=== PATIENT | male | born 1965 | race Hispanic/Latino ===

== ENCOUNTER 2017-06-02 16:36 | Emergency (ER) | payer MEDICARE ==
[2017-06-02] MEDS ORDERED: MOTRIN PO ONE (20:17)
[2017-06-02] MEDS ORDERED: BACTRIM DS PO ONE (20:17)
--- NOTE | 2017-06-02 20:35 | Emergency Department Report ---
ED Extremity Problem HPI - General Chief complaint: Extremity Problem,Nontraumatic Stated complaint: RT LEG SWELLING Time Seen by Provider: 06/02/17 20:11 Source: patient Mode of arrival: Ambulatory Limitations: Other - History of Present Illness Initial comments: 52-year-old male past medical history bipolar, schizophrenia, mild mental retardation from alf presents with complaint of several days of swelling and redness to his right lower extremity. On exam patient is somewhat verbally disorganized ranting about the Bible and his support for the [employer]. Patient is awake and alert 3, is cooperative and lucid enough to understand my questioning and describe his symptoms. As per the patient's alf counselor Miss Belia Rod was present at bedside this is his baseline level of behavior. Patient's mother also present during exam and stated that this is usually how he expresses himself. Visible redness and mild swelling to right distal anterior ankle/tibial region. Patient states it is not painful feel slightly itchy. As per mother and group counselor patient has had cellulitis of his skin in the past. Denies any direct trauma to leg. MD Complaint: extremity pain, extremity swelling Onset/Timin -: days(s) Location: right, lower extremity History of Same: Yes Radiation: none Quality: burning, aching, other (itching) Consistency: constant Improves with: nothing - Related Data Previous Rx's Medication Instructions Recorded Last Taken Type Ciprofloxacin HCl [Ciprofloxacin 500 mg PO Q12H #14 tab 10/04/15 Unknown Rx TAB] Sulfamethoxazole/Trimethoprim 1 each PO BID #14 tablet 10/04/15 Unknown Rx [Bactrim DS TAB] Cephalexin [Keflex] 500 mg PO BID #14 capsule 06/02/17 Unknown Rx Ibuprofen [Motrin] 600 mg PO Q8H PRN #20 tablet 06/02/17 Unknown Rx Sulfamethoxazole/Trimethoprim 1 each PO BID #14 tablet 06/02/17 Unknown Rx [Bactrim DS TAB] Allergies Allergy/AdvReac Type Severity Reaction Status Date / Time No Known Allergies Allergy Unverified 06/02/17 17:26 ED Review of Systems ROS: Stated complaint: RT LEG SWELLING Other details as noted in HPI Constitutional: denies: chills, fever Eyes: denies: eye pain, eye discharge, vision change ENT: denies: ear pain, throat pain Respiratory: denies: cough, shortness of breath, wheezing Cardiovascular: denies: chest pain, palpitations Endocrine: no symptoms reported Gastrointestinal: denies: abdominal pain, nausea, diarrhea Genitourinary: denies: urgency, dysuria Musculoskeletal: as per HPI. denies: back pain, joint swelling, arthralgia Skin: change in color (erythema right lower anterior wilcox region). denies: rash , lesions Neurological: denies: headache, weakness, paresthesias Psychiatric: denies: anxiety, depression Hematological/Lymphatic: denies: easy bleeding, easy bruising ED Past Medical Hx - Past Medical History Previous Medical History?: Yes Hx Psychiatric Treatment: Yes (Bipolar Schizophrenia) Additional medical history: MR - Social History Smoking Status: Never Smoker Substance Use Type: None - Medications Home Medications: Home Medications Medication Instructions Recorded Confirmed Last Taken Type Ciprofloxacin HCl [Ciprofloxacin 500 mg PO Q12H #14 tab 10/04/15 Unknown Rx TAB] Sulfamethoxazole/Trimethoprim 1 each PO BID #14 tablet 10/04/15 Unknown Rx [Bactrim DS TAB] Cephalexin [Keflex] 500 mg PO BID #14 capsule 06/02/17 Unknown Rx Ibuprofen [Motrin] 600 mg PO Q8H PRN #20 tablet 06/02/17 Unknown Rx Sulfamethoxazole/Trimethoprim 1 each PO BID #14 tablet 06/02/17 Unknown Rx [Bactrim DS TAB] ED Physical Exam - General Limitations: Other General appearance: alert, in no apparent distress - Head Head exam: Present: atraumatic, normocephalic - Eye Eye exam: Present: normal appearance, PERRL, EOMI - ENT ENT exam: Present: mucous membranes moist - Neck Neck exam: Present: normal inspection - Respiratory Respiratory exam: Present: normal lung sounds bilaterally. Absent: respiratory distress - Cardiovascular Cardiovascular Exam: Present: regular rate, normal rhythm. Absent: systolic murmur, diastolic murmur, rubs, gallop - GI/Abdominal GI/Abdominal exam: Present: soft, normal bowel sounds - Rectal Rectal exam: Present: deferred - Extremities Exam Extremities exam: Present: normal inspection - Expanded Lower Extremity Exam Right Hip exam: Present: normal inspection, full ROM Upper Leg exam: Present: normal inspection, full ROM Knee exam: Present: normal inspection, full ROM Lower Leg exam: Present: tenderness, swelling, erythema (visible erythema anterior right lower wilcox region above the ankle with +1/+2 pitting edema.) Ankle exam: Present: normal inspection, full ROM, swelling Foot/Toe exam: Present: normal inspection, full ROM Neuro vascular tendon exam: Present: no vascular compromise (distal dorsalis pedis and posterior tibial pulses are intact to palpation) Gait: Positive: observed and normal 1 - Swelling and erythema here - Back Exam Back exam: Present: normal inspection - Neurological Exam Neurological exam: Present: alert, oriented X3, CN II-XII intact, normal gait - Psychiatric Psychiatric exam: Present: normal affect, normal mood - Skin Skin exam: Present: warm, dry, intact, normal color. Absent: rash ED Course Vital Signs 06/02/17 17:19 Temperature 97.9 F Pulse Rate 71 Respiratory 16 Rate Blood Pressure 123/73 O2 Sat by Pulse 99 Oximetry ED Medical Decision Making - Medical Decision Making A/P: Right lower extremity swelling/redness 1-will treat patient empirically with Bactrim and Keflex twice a day 7 days for suspected cellulitis right lower extremity. Borders marked. Patient has normal vital signs no fevers. 2-as patient does have +1+2 pitting edema above right ankle to approximately up one third of the anterior tibial region we'll send patient for lower extremity duplex in the a.m. as vascular lab is currently closed. Patient has well score of 1 points: Low risk group for DVT. Unlikely according to [facility] DVT studies. 3-patient's mother as well as patient's alf counselor Miss Belia Rod present for the discussion of importance of obtaining the lower extremity duplex. Ms. Rod indicated that she would communicate my orders to the next counselor to have the patient come tomorrow morning for the duplex study. I explained my clinical plan to the patient was adamant that he would follow with my plan. 4- Critical care attestation.: If time is entered above; I have spent that time in minutes in the direct care of this critically ill patient, excluding procedure time. ED Disposition Clinical Impression: Swelling of right lower extremity Disposition: DC-01 TO HOME OR SELFCARE Is pt being admited?: No Does the pt Need Aspirin: No Condition: Stable Instructions: Cellulitis (ED), Ultrasound (GEN) Additional Instructions: Patient to report tomorrow morning to [facility] vascular lab for right lower extremity duplex study to rule out DVT. This was explained to the patient the patient's mother as well as the alf counselor Miss Rod Prescriptions: Cephalexin [Keflex] 500 mg PO BID #14 capsule Ibuprofen [Motrin] 600 mg PO Q8H PRN #20 tablet PRN Reason: Pain Sulfamethoxazole/Trimethoprim [Bactrim DS TAB] 1 each PO BID #14 tablet Referrals: JOSE HAMM MD [Staff Physician] - 3-5 Days Forms: Accompanied Note, Work/School Release Form(ED) Time of Disposition: 21:42
--- NOTE | 2017-06-02 21:29 | XRay Report ---
FINAL REPORT PROCEDURE: XR TIBIA FIBULA 2V RT TECHNIQUE: RIGHT tibia and fibula radiographs, AP and lateral views. CPT 88819 HISTORY: soft tissue swelling RLE COMPARISON: No prior studies are available for comparison. FINDINGS: Fracture (s) and/or Dislocation(s): None . Joint space(s): Normal . Soft tissues: There is diffuse subcutaneous soft tissue induration of right lower leg. Bone mineralization: Normal . Foreign bodies: None . IMPRESSION: No acute bony abnormality.
[2017-06-02 23:11] VITALS: BP 149/101
== END 2017-06-02 21:55 | disposition home or self-care (01) ==
LOC: ED 16:36
DX: R22.41 Localized swelling, mass and lump, right lower limb (principal); F31.9 Bipolar disorder, unspecified; F20.9 Schizophrenia, unspecified
CPT/HCPCS: 99283

== ENCOUNTER 2017-06-03 08:52 | Outpatient (CLI) | payer MEDICARE ==
--- NOTE | 2017-06-04 12:13 | Vascular Lab Report ---
Right Lower Extremity Venous Duplex Study: Reason for Exam: Swelling of the right lower extremity. Comments on the Right: All veins visualized are freely compressible without evidence of internal echogenicity. Flow is spontaneous and phasic throughout. No evidence of acute or chronic thrombus is seen in any of the vessels visualized. Comments on the Left: A limited duplex study was done of the proximal veins of the left lower extremity. All veins visualized are freely compressible without evidence of internal echogenicity. Flow is spontaneous and phasic throughout. No evidence of acute or chronic thrombus is seen in any of the vessels visualized. Impression: No evidence of acute or chronic deep venous thrombosis in the right lower extremity.
== END 2017-06-03 08:53 | disposition home or self-care (01) ==
LOC: VAS 08:52
PROVIDERS: ATTEND Physician Assistant
DX: M79.89 Other specified soft tissue disorders (principal)